=== PATIENT | female | born 1960 | race Caucasian/White ===

== ENCOUNTER → 2020-07-04 | Day surgery (SDC) | payer OTHER ==
[~2020-07-04] MED LIST: ACYCLOVIR 800800 M1 PO; BACTRIM; GABAPENTIN PO; IBUPROFEN 800800 MG PO; NOHOMEMEDICATIONS; NORCO 5-325 TA1 EAC2 PO; NORCO 5-325 TA1 EACH PO; OMEPRAZOLE 20 M20 M1 PO; PERCOCET 5-3251 EACH PO; PROTONIX40 M2 PO
--- NOTE | ~2020-07-04 | OP ---
[facility] [address] [place] [address] OPERATIVE REPORT Name: DONNA SPICER Room: [facility]#: [id number] Admission: 07/04/20 Attend Phys: López Blum Discharge: Date of : 64 Report #: [id number] THIS REPORT FOR: //name// cc: Hermann NAVAS A DO ~ CC: Hermann Blum DATE OF SERVICE: 07/04/2020 PREOPERATIVE DIAGNOSES: Symptomatic cholelithiasis with a history of gallstone pancreatitis. POSTOPERATIVE DIAGNOSES: Symptomatic cholelithiasis with a history of gallstone pancreatitis. OPERATION: Laparoscopic cholecystectomy with intraoperative cholangiogram. SURGEON: López Blum MD. ANESTHESIA: General. ESTIMATED BLOOD LOSS: Minimal. SPECIMEN: Gallbladder. DESCRIPTION OF PROCEDURE: After informed consent was obtained, the patient was brought to the operating room and placed supine. SCDs were placed and working, preoperative antibiotics were administered, general anesthesia was induced. The abdomen was prepped and draped in the usual sterile fashion. A 10 mm incision was made below the umbilicus. Fascia was incised and a trocar was placed. Pneumoperitoneum was established. Three right upper quadrant 5 mm ports were placed. Gallbladder was grasped at the fundus and retracted cephalad. Infundibulum was grasped and retracted laterally. I dissected out the cystic duct and cystic artery. The cystic duct was then clipped A ductotomy was made. Cholangiogram catheter was inserted. Cholangiogram was performed. This demonstrated filling of the cystic duct, common bile duct, common hepatic duct, smooth flow into the duodenum, bifurcation of the hepatic. This was normal. Cholangiogram catheter was removed. The cystic duct was clipped and ligated leaving 3 clips on the remaining duct. The cystic artery was clipped and ligated leaving a single clip on the remaining artery. Gallbladder was then taken off the liver bed with electrocautery. It was placed into an Endopouch and removed. Fascia was then closed with a [id number] 0 Vicryl. Skin was closed with 4-0 Monocryl. Incisions were sealed with Dermabond. COMPLICATIONS: [place] [address] OPERATIVE REPORT Name: DONNA SPICER Room: [facility]#: [id number] Admission: 07/04/20 Attend Phys: López Blum Discharge: Date of : 64 Report #: [id number] DISPOSITION: The patient was taken to recovery in satisfactory condition. By: [id number] Blum MD /nt
[2020-07-04 06:45] LABS: CALCIUM 9.2 mg/dL (8.5-10.1); POTASSIUM 3.4 mmol/L (3.5-5.1)
[2020-07-04 06:50] LABS: ALBUMIN 3.2 g/dL (3.4-5.0); TOTAL BILIRUBIN 0.3 mg/dL (<0.1-1.0); TOTAL PROTEIN 7.9 g/dL (6.4-8.2)
--- NOTE | 2020-07-05 18:06 | PATH ---
[address] [address] PATHOLOGY RPT PROCEDURE Name: JESSICA SPICER [id number]: 07/04/20 Date of : 64 Discharge: Report #: [id number] Path Case #: [id number] [facility] Accession Number: [id number] . 01 Material submitted: . gallbladder - GALLBLADDER . 01 Clinical history: . CHOLELITHIASIS . 02 Diagnosis: "Gallbladder", cholecystectomy: - Chronic cholecystitis. - Cholelithiasis. (CLW:roxy; 07/05/2020) [facility] 07/05/2020 1544 Local . 02 Electronically signed: . Leigh Garcia MD, Pathologist NPI- [id number] . 01 Gross description: . The specimen is received in formalin, labeled "Jessica Spicer", "gallbladder". Received is an intact gallbladder measuring 8.2 x 4.3 x 3.1 cm. The serosal surface is smooth, shiny and pale li-pink. Opening the gallbladder reveals a pale pink-brown, spongy, bile stained mucosa. The gallbladder wall ranges in thickness from 0.1 cm 2.2 cm. No solid masses or nodules are identified. No polyps are present. Calculi are present within the gallbladder and range in size from 0.2 cm to 0.3 cm. Clip Bolter And Wrapper sections are submitted in cassette A1.(SNA; 07/04/2020) [facility] 07/04/2020 1815 Local . 02 Pathologist provided ICD-10: K80.10 . 02 CPT . 645781 Specimen Comment: A courtesy copy of this report has been sent to [phone] Specimen Comment: [phone] Specimen Comment: Report sent to / DR FLOYD Performed at: [address] [facility] [address] [id number] MD Ye Phillip MD Phone: [phone] Performed at: [address] [facility] [address] [id number] [place] [address] PATHOLOGY RPT PROCEDURE Name: JESSICA SPICER Room: [facility]#: [id number] Admission: 07/04/20 Date of : 64 Discharge: Report #: [id number] Path Case #: [id number] MD Alcides Rothman MD Phone: [phone]
== END | disposition home or self-care (01) ==
LOC: M.SUR 06:11
PROVIDERS: ATTEND Surgery
DX: K80.10 Calculus of gallbladder with chronic cholecystitis without obstruction (principal); R65.10 Systemic inflammatory response syndrome (SIRS) of non-infectious origin without acute organ dysfunction; Z20.828 Contact with and (suspected) exposure to other viral communicable diseases; Z87.440 Personal history of urinary (tract) infections; Z79.899 Other long term (current) drug therapy; Z98.890 Other specified postprocedural states; Z88.6 Allergy status to analgesic agent; Z88.0 Allergy status to penicillin